=== PATIENT | male | born 1985 | race Caucasian/White ===

== ENCOUNTER 2022-02-01 04:00 | Emergency (ER) | payer SELFPAY ==
[~2022-02-01] VITALS: Ht 177.8 cm; Wt 81.6 kg
[2022-02-01 04:05] VITALS: BP 155/95
--- NOTE | 2022-02-01 04:05 | NUR ---
0356- PT [facility] TO CHAIR Georgi
--- NOTE | 2022-02-01 04:13 | NUR ---
EXAMINED BY DR WONG. CLEARED, OK TO BOOK. DISCHARGED, AMBUL[facility]ORY [facility].
== END 2022-02-01 04:13 ==
LOC: MED 04:00
DX: Z02.89 Encounter for other administrative examinations (principal); V89.2XXA Person injured in unspecified motor-vehicle accident, traffic, initial encounter; Y93.89 Activity, other specified; Y92.89 Other specified places as the place of occurrence of the external cause; Y99.8 Other external cause status
CPT/HCPCS: 99283